=== PATIENT | female | born 1985 | race Hispanic/Latino ===

== ENCOUNTER 2017-02-13 23:29 | Emergency (ER) | payer OTHER ==
[2017-02-13 23:29] VITALS: BMI 26.6
[2017-02-13 23:54] VITALS: BP 127/87; PULSE 118; RESP 18; TEMP 98.5; O2SAT 98
[2017-02-14] MEDS ORDERED: Bacitracin 500 Units/gm Oint Foilpak UD TOP ONE (00:19)
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
== END 2017-02-13 23:56 | disposition left against medical advice (07) ==
LOC: C.ER 23:29
DX: S93.401A Sprain of unspecified ligament of right ankle, initial encounter (principal); V03.90XA Pedestrian on foot injured in collision with car, pick-up truck or van, unspecified whether traffic or nontraffic accident, initial encounter; Y92.410 Unspecified street and highway as the place of occurrence of the external cause

== ENCOUNTER 2017-06-20 23:57 | Emergency (ER) | payer OTHER ==
[2017-06-20 23:58] VITALS: BMI 26.6
[2017-06-21 00:09] VITALS: BP 119/86; PULSE 100; TEMP 98.3; O2SAT 97
--- NOTE | 2017-06-21 00:36 | C.PDOC ---
History Of Present Illness 31 y/o female presents to the ED for evaluation of a small laceration to her left thumb which she sustained while cutting bread at work prior to arrival. Patient noted bloody discharge from the wound, which prompted this ED visit. Patient denies any other injuries as well as deformities, extremity numbness/ weakness, sensorivascular deficits, or active bleeding at this time. At present time, pt appears mild intoxicated. Time Seen by Provider: 06/21/17 00:12 Chief Complaint (Nursing): Abnormal Skin Integrity History Per: Patient History/Exam Limitations: no limitations Onset/Duration Of Symptoms: Hrs Current Symptoms Are (Timing): Better Location Of Injury: Left: Hand (thumb) Quality Of Symptoms: Draining Additional History Per: Patient Past Medical History Reviewed: Historical Data, Nursing Documentation, Vital Signs Vital Signs: Last Vital Signs Temp 98.3 F 06/21/17 00:04 Pulse 100 H 06/21/17 00:04 Resp 18 06/21/17 00:04 BP 119/86 06/21/17 00:04 Pulse Ox 97 06/21/17 00:41 - Medical History PMH: Kidney Stones, Chronic Kidney Disease Surgical History: No Surg Hx Family History: States: Unknown Family Hx - Social History Hx Tobacco Use: Yes Hx Alcohol Use: Yes Hx Substance Use: No - Immunization History Hx Tetanus Toxoid Vaccination: Yes Hx Influenza Vaccination: No Hx Pneumococcal Vaccination: No Review Of Systems Skin: Positive for: Other (small laceration to left thumb. no active bleeding ) Neurological: Negative for: Weakness, Numbness Physical Exam - Physical Exam Appears: Well, Non-toxic, No Acute Distress Skin: Normal Color, Warm, Dry, Other (1.5cm superficial laceation to left first distal phalanx. no active bleeding . no wound FB.) Extremity: Normal ROM (Left hand), No Tenderness, Capillary Refill (less than 2 seconds ), No Deformity, No Swelling Neurological/Psych: Normal Speech, Normal Cognition, Normal Motor, Normal Sensation, Normal Reflexes Gait: Steady ED Course And Treatment O2 Sat by Pulse Oximetry: 97 (on RA) Pulse Ox Interpretation: Normal Progress Note: On re-eavluation, pt is afebrile, hemodynamicay stable. Non- toxic, ambulatory in Ed with stable gait. Pt appears mild intoxicated. Left hand: wound cleaned, irrigated with saline, bethadine. laceration repaired w/ skin adhesive, steri strips applied. FAROM, no neurovascular deficits. Pt reports, tetanus was given " few months ago, I had scraped my leg". Pt refused tetanus at present time. Pt advised on wound care. ref. to f/u [facility] in 2 days for wound check. return to ED if any worsening or new changes. Laceration - Laceration Repair Left thumb Wound Length (In cm): 1.5 Description Of Wound: Linear Wound Cleansed With: Betadine, Sterile Saline Wound Examination: Irrigated With Saline, No FB With Wound Exploration, No Tendon Injury With Wound Exploration Wound Closure: Steri Strips, Skin Glue Wound Complexity: Simple Disposition - Disposition Referrals: Non [facility] Provider, [Primary Care Provider] - Disposition Time: 00:47 Condition: STABLE Additional Instructions: Keep wound dry, clean for 2-3 days Light duty to injured finger Follow up with PMD in 2 days for re-evaluation. Return if any worsening or new changes. Instructions: Skin Adhesive Care (ED), Laceration (ED) Forms: [employer] (Croatian) - Clinical Impression Clinical Impression: Laceration of finger - PA / [employer] / Resident Statement MD/DO has reviewed & agrees with the documentation as recorded. - Scribe Statement The provider has reviewed the documentation as recorded by the Scribe (Alanis Robbins) All medical record entries made by the Scribe were at my direction and personally dictated by me. I have reviewed the chart and agree that the record accurately reflects my personal performance of the history, physical exam, medical decision making, and the department course for this patient. I have also personally directed, reviewed, and agree with the discharge instructions and disposition.
[2017-06-21 00:52] VITALS: RESP 20
== END 2017-06-21 00:47 | disposition home or self-care (01) ==
LOC: SUPCPDRO 23:57 → C.ER 23:57
DX: S61.012A Laceration without foreign body of left thumb without damage to nail, initial encounter (principal); W26.0XXA Contact with knife, initial encounter; Y93.G1 Activity, food preparation and clean up; Y92.89 Other specified places as the place of occurrence of the external cause; Y99.0 Civilian activity done for income or pay